=== PATIENT | female | born 1985 | race Two or more races ===

== ENCOUNTER 2018-02-20 10:15 | Inpatient (IN) | payer SELFPAY ==
[~2018-02-20] VITALS: Ht 157.5 cm; Wt 71.2 kg
[2018-02-20] MEDS ORDERED: LIDOCAINE 1% PF 30 ML VIAL. INJ PRN (10:45)
[2018-02-20] MEDS ORDERED: 0.9 % SODIUM CHLORIDE 10 ML DISP.SYRIN. IV PRN ×2 (10:45→18:15)
[2018-02-20] MEDS ORDERED: fentaNYL PF VIAL 100 MCG/2 ML VIAL IV PRN ×3 (10:45→18:00)
[2018-02-20] MEDS ORDERED: OXYTOCIN 30 UNIT/500 ML PREMIX 500 ML IV PRN ×3 (10:45→18:15)
[2018-02-20] MEDS ORDERED: PENICILLIN G K 5,000,000 UNIT in IV DEXTROSE 5% 100ML 100 ML IV ONE (12:00)
[2018-02-20 12:04] LABS: BILIRUBIN,URINE NEGATIVE (NEG); CLARITY,URINE CLEAR; COLOR,URINE YELLOW; NITRITE,URINE NEGATIVE (NEG); PH,URINE 7.5; PROTEIN,URINE NEGATIVE (NEG-TRACE); UROBILINOGEN,URINE 0.2 mg/dL (0.2 mg/dL)
[2018-02-20 12:12] LABS: BASO % 0 % (0-3); EOS % 0 % (0-3); HEMATOCRIT 41.2 % (36.0-47.0); HEMOGLOBIN 13.6 g/dL (12.0-15.5); LYMPH # 1.5 x10^3/uL (1.0-4.8); LYMPH % 13 % (24-48); MEAN CORPUSCULAR HEMOGLOBIN 26 pg (25-35); MEAN CORPUSCULAR HGB CONC 33 g/dL (31-37); MEAN CORPUSCULAR VOLUME 79 fL (79-100); MONO # 0.6 x10^3/uL (0.0-1.1); MONO % 6 % (0-9); NEUT # 8.9 x10^3uL (1.8-7.7); NEUT % 80 % (31-73); PLATELET COUNT 348 x10^3/uL (140-400); RED BLOOD COUNT 5.23 x10^6/uL (3.50-5.40); RED CELL DISTRIBUTION WIDTH 17.3 % (11.5-14.5); WHITE BLOOD COUNT 11.1 x10^3/uL (4.0-11.0)
[2018-02-20 12:18] LABS: BACTERIA,URINE MANY /HPF (0-FEW); SQUAMOUS EPITHELIAL CELL,UR MOD /LPF
[2018-02-20] MEDS: IV RINGERS,LACTATED 1000ML 1,000 ML IV PRN ×2 (12:24→21:52)
[2018-02-20] MEDS ORDERED: PENICILLIN G K 2,500,000 UNIT in IV DEXTROSE 5% 50 ML IV SCH (16:00)
[2018-02-20] MEDS ORDERED: CITRIC ACID/SODIUM CITRATE 30 ML SOLUTION. ONE (17:11)
[2018-02-20] MEDS ORDERED: SUCCINYLCHOLINE 200 MG/10 ML VIAL. ONE (17:11)
[2018-02-20] MEDS ORDERED: PROPOFOL 20 ML IV ONE (17:11)
[2018-02-20] MEDS ORDERED: ONDANSETRON PF 4 MG/2 ML VIAL. ONE (17:14)
[2018-02-20] MEDS ORDERED: DEXAMETHASONE SOD PHOS 20 MG/5 ML VIAL. ONE (17:14)
[2018-02-20] MEDS ORDERED: OXYTOCIN 10 UNIT/ML VIAL. ONE ×2 (17:24→17:44)
[2018-02-20] MEDS ORDERED: fentaNYL PF VIAL 100 MCG/2 ML VIAL ONE ×2 (17:29→18:03)
[2018-02-20] MEDS ORDERED: PHENYLEPHRINE in 0.9% NACL PF 1 MG/10 ML SYRINGE. IV ONE (17:30)
[2018-02-20] MEDS ORDERED: METOCLOPRAMIDE HCL 10 MG/2 ML VIAL. ONE (17:45)
[2018-02-20] MEDS ORDERED: KETOROLAC 30 MG/ML INJ FOR OR. INJ ONE (17:53)
[2018-02-20] MEDS ORDERED: MORPHINE SULFATE 2 MG/ML VIAL. IV PRN (18:00)
[2018-02-20] MEDS ORDERED: PROCHLORPERAZINE 10 MG/2 ML VIAL. IV PRN (18:00)
[2018-02-20] MEDS ORDERED: LIDOCAINE 1% PF 2 ML VIAL. ID PRN (18:00)
[2018-02-20] MEDS ORDERED: ONDANSETRON PF 4 MG/2 ML VIAL. IV PRN ×2 (18:00→18:15)
--- NOTE | 2018-02-20 18:06 | PDOC4 ---
OB Operative Note Date: Feb 20, 2018 PRE OP DIAGNOSIS: NRFHT POST OP DIAGNOSIS: NRFHT OPERATION PERFORMED: L KTCS (and PP BTL) Surgeon Dr. Warren Anesthesia: Gen Blood Loss 600 ml Specimen placenta and infant OB Findings: Position (Vertex), Sex (Male), (), Weight (6 Lb 9 oz), Fluid (Meconium), Nuchal Cord (x3) Complications none Additional Remarks pt. SCOTT Mendes Jr, MD Feb 20, 2018 18:06
[2018-02-20] MEDS ORDERED: SEVOFLURANE 31 TO 60 MINUTES. IH ONE (18:10)
[2018-02-20] MEDS ORDERED: KETOROLAC 30 MG/ML VIAL. IV PRN (18:15)
[2018-02-20] MEDS ORDERED: diphenhydrAMINE ORAL ELIXIR 12.5 MG/5 ML ML PO PRN (18:15)
[2018-02-20] MEDS ORDERED: ZOLPIDEM 5 MG TABLET. PO PRN (18:15)
[2018-02-20] MEDS ORDERED: MORPHINE SULFATE/PF 30 ML IV PRN (18:15)
[2018-02-20] MEDS ORDERED: NALOXONE 0.4 MG/ML VIAL. IV PRN (18:15)
[2018-02-20] MEDS ORDERED: SIMETHICONE 80 MG TAB.CHEW PO PRN (18:15)
[2018-02-20] MEDS ORDERED: IBUPROFEN 800 MG TABLET. PO PRN (18:15)
[2018-02-20] MEDS ORDERED: MAG HYDROX/ALUMINUM HYD/SIMETH 30 ML ORAL.SUSP PO PRN (18:15)
--- NOTE | 2018-02-20 20:34 | OP ---
DATE OF SURGERY: 02/20/2018 PREOPERATIVE DIAGNOSES: 1. 40 weeks' intrauterine . 2. Induction of labor secondary to oligohydramnios. 3. intolerance to labor. POSTOPERATIVE DIAGNOSES: 1. 40 weeks' intrauterine . 2. Induction of labor secondary to oligohydramnios. 3. intolerance to labor. PROCEDURE: Primary low transverse section and bilateral tubal ligation. SURGEON: Giorgi Warren MD ANESTHESIA: GETA. ESTIMATED BLOOD LOSS: 600 mL COMPLICATIONS: None. FINDINGS: Viable male infant, Apgars 8, 9 and 9, nuchal cord x 3. Weight 6 pounds 9 ounces. Three-vessel cord placenta delivered manually intact. SUMMARY: A 33-year-old 3, para 1 at 40 weeks presented due to oligohydramnios that was diagnosed in the clinic today. She was initiated on induction process. The patient began having repetitive decels and required section. She and her were counseled on the risks DICTATION ENDS HERE. GIORGI WARREN MD DR: NUBIA/gunnar JOB#: [id number] / [id number]
[2018-02-20 20:45] VITALS: BP 94/61
[2018-02-20 21:15] VITALS: BP 94/63
--- NOTE | 2018-02-20 21:38 | OP ---
DATE OF SURGERY: The patient was counseled on the risks, benefits and expectations of the emergency and voiced clear understanding to proceed. She was also counseled on tubal ligation risk and failure rate and desired to proceed. DESCRIPTION OF PROCEDURE: The patient was taken to surgery suite, placed in dorsal supine position. She was prepped with ChloraPrep and draped in a sterile fashion. After adequate anesthesia, a Pfannenstiel skin incision was made with scalpel down to and through the fascia. Fascia was extended laterally using curved Sibley scissors. The superior edge of fascia was grasped with 2 Chanel clamps and dissected free of the abdominal rectus muscles using blunt dissection along with curved Sibley scissors. The same process took place inferiorly. The abdominal rectus muscle dissected bluntly at the midline. Peritoneum was grasped with 2 hemostats, entered sharply with Metzenbaum scissors. This incision was extended superiorly as well as inferiorly. The Mayur ring retractor was placed. Low transverse hysterotomy incision was made with a scalpel down to the . Hysterotomy incision was extended laterally, superiorly digitally. With aid of fundal pressure, the 's head was delivered in a smooth atraumatic manner. Nuchal cord x 3 was visualized and reduced. With additional fundal pressure, the anterior shoulder followed by posterior shoulder and rest of the male infant was delivered. was suctioned with a bulb syringe orally and nasally. Umbilical cord was clamped twice and cut and viable male infant was handed to waiting nursing staff. Umbilical cord blood was then obtained as well as arterial pH. Three-vessel cord placenta was delivered manually intact. The uterus was then exteriorized and cleared of clot and debris with a moist lap. Hysterotomy incision was reapproximated using 1-0 Vicryl suture in running locked fashion. The uterus palpated firm. Fallopian tubes and ovaries appeared normal bilaterally. Posterior cul-de-sac was cleared of clot and debris with a moist lap. The paracolic gutters were cleared of clot and debris with a moist lap. The right fallopian tube was grasped with Hudson's and undermined within the mesosalpinx with Bovie cautery. The proximal and distal ends of the fallopian tube were tied with plain gut suture. The mid section of fallopian tube was removed with the aid of Metzenbaum scissors. Two telescoping ends were visualized. Same process took place on left fallopian tube. The uterus was then returned to the abdomen. The hysterotomy incision was reviewed. There with a [id number] suture placed in the mid portion of the hysterotomy incision for better hemostasis. Interceed was then placed over the hysterotomy incision in an inverted T fashion. The Mayur ring retractor was removed. Peritoneum was reapproximated using 1-0 Vicryl suture in a running fashion. Fascia was reapproximated using 0 Vicryl suture in a running fashion. Skin was reapproximated using a 4-0 Vicryl suture in a subcuticular manner. The patient tolerated the procedure well and was sent to recovery room in a stable condition. Sponge and needle count correct x 3. SCOTT SHELBY MD DR: NUBIA/gunnar JOB#: [id number] / [id number]
[2018-02-20 21:45] VITALS: BP 85/51
--- NOTE | 2018-02-20 22:34 | OP ---
DATE OF SURGERY: 02/20/2018 PROCEDURE NOTE: Called for cover to Dr. Warren on a 20-week IUFD that underwent misoprostol evacuation of the uterus. On arrival, the patient was comfortable. The patient was placed up in stirrups. Assessment was made of the cervix and after-coming head. The internal os was hindering the delivery of the head. 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 Therefore, it was felt best served to continue with some vaginal misoprostol and also put tension on the internal os and the baby's head with the balloon. A Sawant was passed ____ part with some tension on the Sawant after it was placed in approximately 180 mL of air within the Sawant. Unsuccessful attempt to deliver the fetus along with the misoprostol packing in. In time, the would deliver and this was relayed to Dr. Warren, he agreed and we will proceed with misoprostol and get evacuation of IUFD with after coming head. KASH LUCAS MD DR: ABBIE/gunnar JOB#: [id number] / [id number]
[2018-02-20 23:04] VITALS: BP 90/59
[2018-02-21 05:19] VITALS: BP 88/48
[2018-02-21] MEDS: IV RINGERS,LACTATED 1000ML 1,000 ML IV PRN (06:15)
[2018-02-21 06:31] VITALS: BP 98/52
[2018-02-21] MEDS ORDERED: IV RINGERS,LACTATED 1000ML 1,000 ML IV SCH (07:00)
[2018-02-21 07:59] LABS: BASO % 0 % (0-3); EOS % 0 % (0-3); HEMATOCRIT 29.9 % (36.0-47.0); LYMPH # 1.4 x10^3/uL (1.0-4.8); LYMPH % 10 % (24-48); MEAN CORPUSCULAR HEMOGLOBIN 26 pg (25-35); MEAN CORPUSCULAR HGB CONC 33 g/dL (31-37); MEAN CORPUSCULAR VOLUME 79 fL (79-100); MONO # 0.9 x10^3/uL (0.0-1.1); MONO % 7 % (0-9); NEUT # 11.6 x10^3uL (1.8-7.7); NEUT % 83 % (31-73); PLATELET COUNT 294 x10^3/uL (140-400); RED CELL DISTRIBUTION WIDTH 17.4 % (11.5-14.5)
[2018-02-21 08:00] VITALS: BP 87/55
--- NOTE | 2018-02-21 08:26 | PDOC ---
OB Progress Note Date of Service 02/21/18 Time of Evaluation 0820 Notes PT. feeling well. No complaints. Lab Laboratory Tests Test 02/20/18 10:45 02/20/18 11:50 Urine Collection Type Unknown Urine Color Yellow Urine Clarity Clear Urine pH 7.5 Urine Specific [place] 1.010 Urine Protein Negative mg/dL (NEG-TRACE) Urine Glucose (UA) Negative mg/dL (NEG) Urine Ketones (Stick) Negative mg/dL (NEG) Urine Blood Negative (NEG) Urine Nitrite Negative (NEG) Urine Bilirubin Negative (NEG) Urine Urobilinogen Dipstick 0.2 mg/dL (0.2 mg/dL) Urine Leukocyte Esterase Negative (NEG) Urine RBC 1-2 /HPF (0-2) Urine WBC 5-10 /HPF (0-4) Urine Squamous Epithelial Cells Mod /LPF Urine Bacteria Many /HPF (0-FEW) Urine Mucus Mod /LPF White Blood Count 11.1 x10^3/uL (4.0-11.0) Red Blood Count 5.23 x10^6/uL (3.50-5.40) Hemoglobin 13.6 g/dL (12.0-15.5) Hematocrit 41.2 % (36.0-47.0) Mean Corpuscular Volume 79 fL (79-100) Mean Corpuscular Hemoglobin 26 pg (25-35) Mean Corpuscular Hemoglobin Concent 33 g/dL (31-37) Red Cell Distribution Width 17.3 % (11.5-14.5) Platelet Count 348 x10^3/uL (140-400) Neutrophils (%) (Auto) 80 % (31-73) Lymphocytes (%) (Auto) 13 % (24-48) Monocytes (%) (Auto) 6 % (0-9) Eosinophils (%) (Auto) 0 % (0-3) Basophils (%) (Auto) 0 % (0-3) Neutrophils # (Auto) 8.9 x10^3uL (1.8-7.7) Lymphocytes # (Auto) 1.5 x10^3/uL (1.0-4.8) Monocytes # (Auto) 0.6 x10^3/uL (0.0-1.1) Eosinophils # (Auto) 0.0 x10^3/uL (0.0-0.7) Basophils # (Auto) 0.0 x10^3/uL (0.0-0.2) Treponema pallidum Antibody Nonreactive (Nonreactive) Laboratory Tests Test 02/20/18 10:45 02/20/18 11:50 Urine Collection Type Unknown Urine Color Yellow Urine Clarity Clear Urine pH 7.5 Urine Specific [place] 1.010 Urine Protein Negative mg/dL (NEG-TRACE) Urine Glucose (UA) Negative mg/dL (NEG) Urine Ketones (Stick) Negative mg/dL (NEG) Urine Blood Negative (NEG) Urine Nitrite Negative (NEG) Urine Bilirubin Negative (NEG) Urine Urobilinogen Dipstick 0.2 mg/dL (0.2 mg/dL) Urine Leukocyte Esterase Negative (NEG) Urine RBC 1-2 /HPF (0-2) Urine WBC 5-10 /HPF (0-4) Urine Squamous Epithelial Cells Mod /LPF Urine Bacteria Many /HPF (0-FEW) Urine Mucus Mod /LPF White Blood Count 11.1 x10^3/uL (4.0-11.0) Red Blood Count 5.23 x10^6/uL (3.50-5.40) Hemoglobin 13.6 g/dL (12.0-15.5) Hematocrit 41.2 % (36.0-47.0) Mean Corpuscular Volume 79 fL (79-100) Mean Corpuscular Hemoglobin 26 pg (25-35) Mean Corpuscular Hemoglobin Concent 33 g/dL (31-37) Red Cell Distribution Width 17.3 % (11.5-14.5) Platelet Count 348 x10^3/uL (140-400) Neutrophils (%) (Auto) 80 % (31-73) Lymphocytes (%) (Auto) 13 % (24-48) Monocytes (%) (Auto) 6 % (0-9) Eosinophils (%) (Auto) 0 % (0-3) Basophils (%) (Auto) 0 % (0-3) Neutrophils # (Auto) 8.9 x10^3uL (1.8-7.7) Lymphocytes # (Auto) 1.5 x10^3/uL (1.0-4.8) Monocytes # (Auto) 0.6 x10^3/uL (0.0-1.1) Eosinophils # (Auto) 0.0 x10^3/uL (0.0-0.7) Basophils # (Auto) 0.0 x10^3/uL (0.0-0.2) Treponema pallidum Antibody Nonreactive (Nonreactive) Medications Current Medications Sodium Chloride (Normal Saline Flush) 3 ml QSHIFT PRN IV AFTER MEDS AND BLOOD DRAWS; Start 02/20/18 at 10:45 Ringer's Solution 1,000 ml @ 125 mls/hr Q8H PRN IV PER PROTOCOL Last administered on 02/21/18at 06:15; Start 02/20/18 at 12:00 Fentanyl Citrate (Fentanyl 2ml Vial) 100 mcg PRN Q1HR PRN IV Severe pain Last administered on 02/20/18at 16:35; Start 02/20/18 at 10:45; Stop 02/20/18 at 18:24 ; Status DC Lidocaine HCl (Xylocaine 1% Pf 30ml Vial) 30 ml 1X PRN PRN INJ SEE COMMENTS; Start 02/20/18 at 10:45; Stop 02/22/18 at 10:44 Oxytocin/Sodium Chloride 500 ml @ 0 mls/hr CONT PRN IV SEE I/O RECORD Last administered on 02/20/18at 12:25; Start 02/20/18 at 10:45 Oxytocin/Sodium Chloride 500 ml @ 0 mls/hr CONT PRN PRN IV Post delivery bleeding; Start 02/20/18 at 10:45 Ibuprofen (Motrin) 800 mg PRN Q6HRS PRN PO PAIN; Start 02/20/18 at 10:45 Penicillin G Potassium 0735424 unit/Dextrose 100 ml @ 100 mls/hr 1X ONCE IV ; Start 02/20/18 at 12:00; Stop 02/20/18 at 12:39; Status DC Penicillin G Potassium [id number] unit/Dextrose 50 ml @ 100 mls/hr Q4H IV ; Start 02/20/18 at 16:00; Stop 02/20/18 at 16:00; Status DC Ondansetron HCl (Zofran) 4 mg PRN Q6HRS PRN IV NAUSEA/VOMITING; Start 02/20/18 at 18:00; Stop 02/20/18 at 23:00; Status DC Fentanyl Citrate (Fentanyl 2ml Vial) 25 mcg PRN Q5MIN PRN IV MILD PAIN; Start 02/20/18 at 18:00; Stop 02/20/18 at 23:00; Status DC Fentanyl Citrate (Fentanyl 2ml Vial) 50 mcg PRN Q5MIN PRN IV MODERATE TO SEVERE PAIN; Start 02/20/18 at 18:00; Stop 02/20/18 at 23:00; Status DC Morphine Sulfate (Morphine Sulfate) 1 mg PRN Q10MIN PRN IV SEVERE PAIN; Start 02/20/18 at 18:00; Stop 02/20/18 at 23:00; Status DC Ringer's Solution 1,000 ml @ 30 mls/hr Q24H IV ; Start 02/21/18 at 07:00; Stop 02/21/18 at 18:59; Status Cancel Lidocaine HCl (Xylocaine-Mpf 1% 2ml Vial) 2 ml PRN 1X PRN ID PRIOR TO IV START ; Start 02/20/18 at 18:00; Stop 02/20/18 at 23:00; Status DC Prochlorperazine Edisylate (Compazine) 5 mg PACU PRN PRN IV NAUSEA, MRX1; Start 02/20/18 at 18:00; Stop 02/20/18 at 23:00; Status DC Propofol 20 ml @ As Directed STK-MED ONCE IV ; Start 02/20/18 at 17:11; Stop at 17:12; Status DC Succinylcholine Chloride (Anectine) 200 mg STK-MED ONCE .ROUTE ; Start 02/20/18 at 17:11; Stop 02/20/18 at 17:12; Status DC Citric Acid/ Sodium Citrate (Bicitra) 30 ml STK-MED ONCE .ROUTE ; Start at 17:11; Stop 02/20/18 at 17:12; Status DC Dexamethasone Sodium Phosphate (Decadron) 20 mg STK-MED ONCE .ROUTE ; Start at 17:14; Stop 02/20/18 at 17:15; Status DC Ondansetron HCl (Zofran) 4 mg STK-MED ONCE .ROUTE ; Start 02/20/18 at 17:14; Stop 02/20/18 at 17:15; Status DC Oxytocin (Pitocin) 10 unit STK-MED ONCE .ROUTE ; Start 02/20/18 at 17:24; Stop 02/20/18 at 17:25; Status DC Fentanyl Citrate (Fentanyl 2ml Vial) 100 mcg STK-MED ONCE .ROUTE ; Start at 17:29; Stop 02/20/18 at 17:30; Status DC Phenylephrine HCl (PHENYLEPHRINE in 0.9% NACL PF) 1 mg STK-MED ONCE IV ; Start 02/20/18 at 17:30; Stop 02/20/18 at 17:32; Status DC Oxytocin (Pitocin) 10 unit STK-MED ONCE .ROUTE ; Start 02/20/18 at 17:44; Stop 02/20/18 at 17:46; Status DC Metoclopramide HCl (Reglan Vial) 10 mg STK-MED ONCE .ROUTE ; Start 02/20/18 at 17:45; Stop 02/20/18 at 17:46; Status DC Ephedrine Sulfate (Akovaz) 50 mg STK-MED ONCE .ROUTE ; Start 02/20/18 at 17:48; Stop 02/20/18 at 17:49; Status DC Ketorolac Tromethamine (Toradol For Or Only) 30 mg STK-MED ONCE INJ ; Start at 17:53; Stop 02/20/18 at 17:54; Status DC Fentanyl Citrate (Fentanyl 2ml Vial) 100 mcg STK-MED ONCE .ROUTE ; Start at 18:03; Stop 02/20/18 at 18:04; Status DC Sodium Chloride (Normal Saline Flush) 3 ml QSHIFT PRN IV AFTER MEDS AND BLOOD DRAWS; Start 02/20/18 at 18:15 Oxytocin/Sodium Chloride 500 ml @ 125 mls/hr CONT PRN IV EXCESSIVE POST- BLEEDING; Start 02/20/18 at 18:15; Stop 02/21/18 at 02:14; Status DC Ibuprofen (Motrin) 800 mg PRN Q8HRS PRN PO INFLAMMATION; Start 02/20/18 at 18: 15 Ondansetron HCl (Zofran) 4 mg PRN Q6HRS PRN IV NAUSEA/VOMITING; Start 02/20/18 at 18:15 Docusate Sodium (Colace) 100 mg PRN BID PRN PO CONSTIPATION; Start 02/20/18 at 18:15 Al Hydroxide/Mg Hydroxide (Mylanta Plus Xs) 30 ml PRN Q4HRS PRN PO HEARTBURN / GAS; Start 02/20/18 at 18:15 Simethicone (Gas-X) 80 mg PRN AFTMEALHC PRN PO GAS / BLOATING; Start 02/20/18 at 18:15 Diphenhydramine HCl (Benadryl Oral Elixir) 12.5 mg PRN Q6HRS PRN PO ITCHING; Start 02/20/18 at 18:15 Ferrous Sulfate (Feosol) 325 mg BIDWMEALS PO ; Start 02/21/18 at 08:00 Zolpidem Tartrate (Ambien) 5 mg PRN QHS PRN PO INSOMNIA, MAY REPEAT X1; Start 02/20/18 at 18:15 Oxycodone/ Acetaminophen (Percocet 5/325) 2 tab PRN Q4HRS PRN PO MODERATE PAIN , SEVERE PAIN; Start 02/20/18 at 18:15 Ketorolac Tromethamine (Toradol 30mg Vial) 30 mg PRN Q6HRS PRN IV PAIN Last administered on 02/21/18at 06:16; Start 02/20/18 at 18:15; Stop 02/25/18 at 18:14 Naloxone HCl (Narcan) 0.4 mg PRN Q2MIN PRN IV SEE INSTRUCTIONS; Start 02/20/18 at 18:15 Morphine Sulfate 30 ml @ 0 mls/hr CONT PRN PRN IV PER PROTOCOL Last administered on 02/20/18at 19:41; Start 02/20/18 at 18:15 Sevoflurane (Ultane) 30 ml STK-MED ONCE IH ; Start 02/20/18 at 18:10; Stop 02/20 at 18:11; Status DC Exam Abd: soft, mild tenderness, fundus firm Bandage removed. Incision site: clean, dry and intact Assessment POD#1 s/p c/s Plan of Care: Continue current Tx, Mgmt SCOTT SHELBY Jr, MD Feb 21, 2018 08:26
[2018-02-21] MEDS: DOCUSATE SODIUM 100 MG CAPSULE. PO PRN (10:24)
[2018-02-21] MEDS: FERROUS SULFATE 325 MG TABLET. PO SCH ×2 (10:24→17:00)
[2018-02-21] MEDS: oxyCODONE/APAP 5/325 1 TAB TABLET PO PRN ×4 (10:24→23:19)
[2018-02-21] MEDS: IBUPROFEN 800 MG TABLET. PO PRN ×2 (14:13→22:06)
[2018-02-21 15:30] VITALS: BP 92/62
[2018-02-21 22:00] VITALS: BP 100/64
[2018-02-22 03:47] VITALS: BP 88/54
[2018-02-22] MEDS: oxyCODONE/APAP 5/325 1 TAB TABLET PO PRN ×3 (08:17→17:27)
[2018-02-22] MEDS: IBUPROFEN 800 MG TABLET. PO PRN ×2 (08:17→17:27)
[2018-02-22] MEDS: FERROUS SULFATE 325 MG TABLET. PO SCH ×2 (08:17→17:26)
[2018-02-22] MEDS: DOCUSATE SODIUM 100 MG CAPSULE. PO PRN (08:17)
[2018-02-22 15:08] VITALS: BP 101/64
[2018-02-22 16:41] VITALS: BP 100/72
--- NOTE | 2018-02-22 17:54 | PDOC ---
OB Progress Note Date of Service 02/22/18 Time of Evaluation 1750 Notes PT. feeling well. No complaints. Lab Laboratory Tests Test 02/21/18 07:45 White Blood Count 14.0 x10^3/uL (4.0-11.0) Red Blood Count 3.80 x10^6/uL (3.50-5.40) Hemoglobin 10.0 g/dL (12.0-15.5) Hematocrit 29.9 % (36.0-47.0) Mean Corpuscular Volume 79 fL (79-100) Mean Corpuscular Hemoglobin 26 pg (25-35) Mean Corpuscular Hemoglobin Concent 33 g/dL (31-37) Red Cell Distribution Width 17.4 % (11.5-14.5) Platelet Count 294 x10^3/uL (140-400) Neutrophils (%) (Auto) 83 % (31-73) Lymphocytes (%) (Auto) 10 % (24-48) Monocytes (%) (Auto) 7 % (0-9) Eosinophils (%) (Auto) 0 % (0-3) Basophils (%) (Auto) 0 % (0-3) Neutrophils # (Auto) 11.6 x10^3uL (1.8-7.7) Lymphocytes # (Auto) 1.4 x10^3/uL (1.0-4.8) Monocytes # (Auto) 0.9 x10^3/uL (0.0-1.1) Eosinophils # (Auto) 0.0 x10^3/uL (0.0-0.7) Basophils # (Auto) 0.0 x10^3/uL (0.0-0.2) Medications Current Medications Sodium Chloride (Normal Saline Flush) 3 ml QSHIFT PRN IV AFTER MEDS AND BLOOD DRAWS; Start 02/20/18 at 10:45; Stop 02/22/18 at 08:49; Status DC Ringer's Solution 1,000 ml @ 125 mls/hr Q8H PRN IV PER PROTOCOL Last administered on 02/21/18at 06:15; Start 02/20/18 at 12:00; Stop 02/22/18 at 08:49 ; Status DC Fentanyl Citrate (Fentanyl 2ml Vial) 100 mcg PRN Q1HR PRN IV Severe pain Last administered on 02/20/18at 16:35; Start 02/20/18 at 10:45; Stop 02/20/18 at 18:24 ; Status DC Lidocaine HCl (Xylocaine 1% Pf 30ml Vial) 30 ml 1X PRN PRN INJ SEE COMMENTS; Start 02/20/18 at 10:45; Stop 02/22/18 at 08:49; Status DC Oxytocin/Sodium Chloride 500 ml @ 0 mls/hr CONT PRN IV SEE I/O RECORD Last administered on 02/20/18at 12:25; Start 02/20/18 at 10:45; Stop 02/22/18 at 08:49 ; Status DC Oxytocin/Sodium Chloride 500 ml @ 0 mls/hr CONT PRN PRN IV Post delivery bleeding; Start 02/20/18 at 10:45; Stop 02/22/18 at 08:49; Status DC Ibuprofen (Motrin) 800 mg PRN Q6HRS PRN PO PAIN MILD Last administered on at 17:27; Start 02/20/18 at 10:45 Penicillin G Potassium [id number] unit/Dextrose 100 ml @ 100 mls/hr 1X ONCE IV ; Start 02/20/18 at 12:00; Stop 02/20/18 at 12:39; Status DC Penicillin G Potassium [id number] unit/Dextrose 50 ml @ 100 mls/hr Q4H IV ; Start 02/20/18 at 16:00; Stop 02/20/18 at 16:00; Status DC Ondansetron HCl (Zofran) 4 mg PRN Q6HRS PRN IV NAUSEA/VOMITING; Start 02/20/18 at 18:00; Stop 02/20/18 at 23:00; Status DC Fentanyl Citrate (Fentanyl 2ml Vial) 25 mcg PRN Q5MIN PRN IV MILD PAIN; Start 02/20/18 at 18:00; Stop 02/20/18 at 23:00; Status DC Fentanyl Citrate (Fentanyl 2ml Vial) 50 mcg PRN Q5MIN PRN IV MODERATE TO SEVERE PAIN; Start 02/20/18 at 18:00; Stop 02/20/18 at 23:00; Status DC Morphine Sulfate (Morphine Sulfate) 1 mg PRN Q10MIN PRN IV SEVERE PAIN; Start 02/20/18 at 18:00; Stop 02/20/18 at 23:00; Status DC Ringer's Solution 1,000 ml @ 30 mls/hr Q24H IV ; Start 02/21/18 at 07:00; Stop 02/21/18 at 18:59; Status Cancel Lidocaine HCl (Xylocaine-Mpf 1% 2ml Vial) 2 ml PRN 1X PRN ID PRIOR TO IV START ; Start 02/20/18 at 18:00; Stop 02/20/18 at 23:00; Status DC Prochlorperazine Edisylate (Compazine) 5 mg PACU PRN PRN IV NAUSEA, MRX1; Start 02/20/18 at 18:00; Stop 02/20/18 at 23:00; Status DC Propofol 20 ml @ As Directed STK-MED ONCE IV ; Start 02/20/18 at 17:11; Stop at 17:12; Status DC Succinylcholine Chloride (Anectine) 200 mg STK-MED ONCE .ROUTE ; Start 02/20/18 at 17:11; Stop 02/20/18 at 17:12; Status DC Citric Acid/ Sodium Citrate (Bicitra) 30 ml STK-MED ONCE .ROUTE ; Start at 17:11; Stop 02/20/18 at 17:12; Status DC Dexamethasone Sodium Phosphate (Decadron) 20 mg STK-MED ONCE .ROUTE ; Start at 17:14; Stop 02/20/18 at 17:15; Status DC Ondansetron HCl (Zofran) 4 mg STK-MED ONCE .ROUTE ; Start 02/20/18 at 17:14; Stop 02/20/18 at 17:15; Status DC Oxytocin (Pitocin) 10 unit STK-MED ONCE .ROUTE ; Start 02/20/18 at 17:24; Stop 02/20/18 at 17:25; Status DC Fentanyl Citrate (Fentanyl 2ml Vial) 100 mcg STK-MED ONCE .ROUTE ; Start at 17:29; Stop 02/20/18 at 17:30; Status DC Phenylephrine HCl (PHENYLEPHRINE in 0.9% NACL PF) 1 mg STK-MED ONCE IV ; Start 02/20/18 at 17:30; Stop 02/20/18 at 17:32; Status DC Oxytocin (Pitocin) 10 unit STK-MED ONCE .ROUTE ; Start 02/20/18 at 17:44; Stop 02/20/18 at 17:46; Status DC Metoclopramide HCl (Reglan Vial) 10 mg STK-MED ONCE .ROUTE ; Start 02/20/18 at 17:45; Stop 02/20/18 at 17:46; Status DC Ephedrine Sulfate (Akovaz) 50 mg STK-MED ONCE .ROUTE ; Start 02/20/18 at 17:48; Stop 02/20/18 at 17:49; Status DC Ketorolac Tromethamine (Toradol For Or Only) 30 mg STK-MED ONCE INJ ; Start at 17:53; Stop 02/20/18 at 17:54; Status DC Fentanyl Citrate (Fentanyl 2ml Vial) 100 mcg STK-MED ONCE .ROUTE ; Start at 18:03; Stop 02/20/18 at 18:04; Status DC Sodium Chloride (Normal Saline Flush) 3 ml QSHIFT PRN IV AFTER MEDS AND BLOOD DRAWS; Start 02/20/18 at 18:15; Stop 02/22/18 at 08:49; Status DC Oxytocin/Sodium Chloride 500 ml @ 125 mls/hr CONT PRN IV EXCESSIVE POST- BLEEDING; Start 02/20/18 at 18:15; Stop 02/21/18 at 02:14; Status DC Ibuprofen (Motrin) 800 mg PRN Q8HRS PRN PO INFLAMMATION; Start 02/20/18 at 18: 15; Status Cancel Ondansetron HCl (Zofran) 4 mg PRN Q6HRS PRN IV NAUSEA/VOMITING; Start 02/20/18 at 18:15; Stop 02/22/18 at 08:49; Status DC Docusate Sodium (Colace) 100 mg PRN BID PRN PO CONSTIPATION Last administered on 02/22/18at 08:17; Start 02/20/18 at 18:15 Al Hydroxide/Mg Hydroxide (Mylanta Plus Xs) 30 ml PRN Q4HRS PRN PO HEARTBURN / GAS; Start 02/20/18 at 18:15 Simethicone (Gas-X) 80 mg PRN AFTMEALHC PRN PO GAS / BLOATING Last administered on 02/21/18at 10:24; Start 02/20/18 at 18:15 Diphenhydramine HCl (Benadryl Oral Elixir) 12.5 mg PRN Q6HRS PRN PO ITCHING; Start 02/20/18 at 18:15 Ferrous Sulfate (Feosol) 325 mg BIDWMEALS PO Last administered on 02/22/18at 17: 26; Start 02/21/18 at 08:00 Zolpidem Tartrate (Ambien) 5 mg PRN QHS PRN PO INSOMNIA, MAY REPEAT X1; Start 02/20/18 at 18:15 Oxycodone/ Acetaminophen (Percocet 5/325) 2 tab PRN Q4HRS PRN PO MODERATE PAIN , SEVERE PAIN Last administered on 02/22/18at 17:27; Start 02/20/18 at 18:15 Ketorolac Tromethamine (Toradol 30mg Vial) 30 mg PRN Q6HRS PRN IV PAIN Last administered on 02/21/18at 06:16; Start 02/20/18 at 18:15; Stop 02/22/18 at 08:49 ; Status DC Naloxone HCl (Narcan) 0.4 mg PRN Q2MIN PRN IV SEE INSTRUCTIONS; Start 02/20/18 at 18:15; Stop 02/22/18 at 08:49; Status DC Morphine Sulfate 30 ml @ 0 mls/hr CONT PRN PRN IV PER PROTOCOL Last administered on 02/20/18at 19:41; Start 02/20/18 at 18:15; Stop 02/22/18 at 08:49 ; Status DC Sevoflurane (Ultane) 30 ml STK-MED ONCE IH ; Start 02/20/18 at 18:10; Stop 02/20 at 18:11; Status DC Exam Abd: soft, mild tenderness, fundus firm Incision site: clean, dry and intact Assessment POD#2 s/p c/s Plan of Care: Continue current Tx, Mgmt SCOTT SHELBY Jr, MD Feb 22, 2018 17:54
[2018-02-22 22:00] VITALS: BP 99/66
[2018-02-23 04:00] VITALS: BP 98/66
[2018-02-23] MEDS: FERROUS SULFATE 325 MG TABLET. PO SCH (08:28)
[2018-02-23] MEDS: oxyCODONE/APAP 5/325 1 TAB TABLET PO PRN (08:29)
[2018-02-23 11:32] VITALS: BP 103/66
--- NOTE | 2018-02-23 15:32 | PDOC3 ---
OB DISCHARGE SUMMARY DATE OF ADMISSION: 02/20/18 DATE OF DISCHARGE: 02/23/18 REASON FOR ADMISSION: section INTRAPARTUM PROCEDURES: : Low Cerv Trans, Others (BTL) DISCHARGE DIAGNOSIS: Term Delivered DISCHARGE INFORMATION: Activity (no lifting> 20 lbs. x 4 wks, no driving x 2 wks and pelvic rest x 6 wks), Diet (regular), Discharge to (home. F/u in 2 wks with Sen) HOSPITAL COURSE term gestation delivered via c/s and BTL. CONDITION AT DISCHARGE stable SCOTT SHELBY Jr, MD Feb 23, 2018 15:32
--- NOTE | 2018-02-23 15:32 | DISCH ---
DISCHARGE INSTRUCTIONS Condition on Discharge Condition on Discharge: Stable Activity After Discharge Activity Instructions for Disc: Activity as tolerated Lifting Instructions after Dis: No heavy lifting Driving Instructions after Dis: No driving for 2 weeks Diet after Discharge Diet after Discharge: Regular Contacting the DRRakesh after DC Call your doctor for: Concerns you may have Follow-Up Follow up with: Sen in 2 weeks. SCOTT SHELBY Jr, MD Feb 23, 2018 15:32
[2018-02-23] MEDS ORDERED: IBUP800T19 PO (15:34)
[2018-02-23] MEDS ORDERED: OXYC1TAB7 PO (15:34)
[2018-02-23] MEDS ORDERED: DOCU-109 PO (15:34)
--- NOTE | 2018-02-26 15:09 | PATHOLOGY ---
[facility] Accession Number: [id number] . 01 Material submitted: . PART A: PLACENTA AND CORD PART B: RIGHT TUBE PART C: LEFT TUBE . 01 Clinical history: . IUP, section EDC: 02/20/18 Emergency rapid for poor strip and decels Additional history per requisition . 02 Diagnosis: A. 462-gram term placenta of an estimated 40 weeks gestation with attached and detached segments of umbilical cord: - Subamniotic pigmented macrophages and focal reactive changes of amnionitic surface epithelium consistent with meconium staining. - Intervillous thrombi, several, small. . B. Right tubal ligation: - Segment of fallopian tube confirmed. . C. Left tubal ligation: - Segment of fallopian tube confirmed. ([facility]; 02/23/2018) QMS/02/23/2018 . 02 Comment: The placenta shows evidence of meconium staining and contains several intervillous thrombi. There is no evidence of an acute chorioamnionitis or villitis. There are no infarcts. ([facility]; 02/23/2018) . 02 Electronically signed: . Ezequiel Teran MD, Pathologist NPI- [id number] . 01 Gross description: . A. Received in formalin labeled "Ioana Perez, placenta," is an ovoid hammer placenta with attached membranes and umbilical cord. The trimmed placental disc weighs 462 g and measures 19.7 x 16.6 by up to 2.5 cm in greatest dimensions. The membranes are slimy, light pritchard and slightly edematous in appearance, and the site of the membrane rupture is 2.0 cm from the nearest placental disc edge. The chorion and amnion are partially . The surface is intact and dusky blue-nolen in appearance, displaying arborizing vasculature. The amnion displays a pale greenish tint and is loosely attached to the surface. The trivascular umbilical cord inserts eccentrically, 2.0 cm from the nearest placental disc edge. The attached umbilical cord segment measures 11 cm in length by 1.3 cm in diameter, and the separate detached umbilical cord segment measures 32 cm in length by up to 1.4 cm in diameter. Both segments are pale pritchard to dusky nolen-pritchard in appearance and display mild helical twisting. The maternal surface cotyledons are partially disrupted and appear complete. Approximately 30% of the maternal surface is covered by a thin layer of pale pritchard fibrous tissue measuring up to 0.2 cm in thickness. Multiple light pritchard possible surface nodules are present, ranging from 0.3 to 0.5 cm in maximum dimension and encompassing less than 5% of the total maternal surface. Focal microcalcifications are also present, encompassing less than 1% of the total maternal surface. Serial sectioning reveals spongy, dark red to dark brown cut surfaces. No additional lesions or nodules are noted upon sectioning. The specimen is submitted representatively as follows: . A1: Umbilical cord and surface vessels A2: Membrane roll and peripheral placental segment A3-A4: Full-thickness placental cross section, divided between and maternal surfaces A5: Supervisor Offset Plate Preparation maternal surface fibrous tissue layer A6: Supervisor Offset Plate Preparation maternal surface possible nodules and microcalcification . B. Received in formalin labeled "Ioana Perez, R fallopian tube," is a non-fimbriated segment of fallopian tube measuring 1.4 cm in length by 0.5 cm in diameter. The serosal surface is smooth and pale purple-pritchard in appearance. Serial sectioning reveals a pinpoint lumen. The specimen is serially sectioned and submitted entirely in cassette B1. . C. Received in formalin labeled "Ioana Perez, L fallopian tube," is a non-fimbriated segment of fallopian tube measuring 0.7 cm in length by 0.4 cm in diameter. The serosal surface is smooth and pale purple-pritchard in appearance. Serial sectioning reveals a pinpoint lumen. The specimen is serially sectioned and submitted entirely in cassette C1. ([facility]; 02/22/2018) XDC/XDC . 02 Pathologist provided ICD-10: O77.0, O43.893, Z37.0, Z3A.40, Z30.2 . 02 CPT . 821851, 369918, [id number] Performed at: [address], [place] [id number] MD Garfield Gracia MD Phone: [phone] Performed at: 02 [facility] [address], [place] [id number] MD Ezequiel Teran MD Phone: [phone]
== END 2018-02-23 16:55 | disposition home or self-care (01) | DRG 766 ==
LOC: 3 SO LND 10:15 → 3 NORTH 20:45
PROVIDERS: ADMIT Obstetrics & Gynecology; ATTEND Obstetrics & Gynecology
PROC: 10D00Z1 Extraction of Products of Conception, Low, Open Approach (ICD-10-PCS; principal; 2018-02-20)
PROC: 0UB70ZZ Excision of Bilateral Fallopian Tubes, Open Approach (ICD-10-PCS; 2018-02-20)
DX: O41.03X0 Oligohydramnios, third trimester, not applicable or unspecified (principal); O76 Abnormality in fetal heart rate and rhythm complicating labor and delivery; O69.81X0 Labor and delivery complicated by cord around neck, without compression, not applicable or unspecified; O77.0 Labor and delivery complicated by meconium in amniotic fluid; Z37.0 Single live birth; Z30.2 Encounter for sterilization; Z3A.40 40 weeks gestation of pregnancy
CPT/HCPCS: 36415; 81001; 85025; 86592; 86850; 86900; 86901; 87086; C1781; J0330; J1100; J1885; J2270; J2370; J2405; J2590; J2704; J2765; J3010; J7120